=== PATIENT | male | born 1965 | race Caucasian/White ===

== ENCOUNTER 2022-03-24 00:49 | Emergency (ER) | payer MEDICARE, MEDICAID ==
[~2022-03-24] VITALS: Ht 172.7 cm; Wt 79.4 kg
[2022-03-24] MEDS ORDERED: diphenhydrAMINE 50 MG/1 ML VIAL ONE (01:15)
[2022-03-24] MEDS ORDERED: HALOPERIDOL LACTATE 5 MG/1 ML VIAL IM ONE (01:15)
[2022-03-24] MEDS ORDERED: LORAZEPAM 2 MG/1 ML VIAL IM ONE (01:15)
[2022-03-24] MEDS ORDERED: diphenhydrAMINE 50 MG/1 ML VIAL IM ONE (01:15)
[2022-03-24] MEDS ORDERED: HALOPERIDOL LACTATE 5 MG/1 ML VIAL ONE (01:16)
[2022-03-24] MEDS ORDERED: LORAZEPAM 2 MG/1 ML VIAL ONE (01:17)
--- NOTE | 2022-03-24 01:29 | NUR ---
Called [facility] and spoke to Poultry Husbandman Juan M, who states patient went AM from the facility and came back intoxicated. Juan M said they will fax any information they have regarding patient Hx but states they have limit infomation on patient due to patient being a new transfer from another facility.
[2022-03-24] MEDS ORDERED: THIAMINE HCL 100 MG TABLET PO ONE (01:45)
[2022-03-24 02:07] LABS: MEAN CORPUSCULAR VOLUME 91.9 fL (73.0-96.2); PLATELET COUNT (AUTO) 422 K/uL (152-348)
[2022-03-24 02:09] LABS: CREATININE 0.8 mg/dL (0.6-1.3); POTASSIUM 3.8 mmol/L (3.5-5.1)
[2022-03-24 02:15] LABS: BILIRUBIN,DIRECT 0.1 mg/dL (0.0-0.2); BILIRUBIN,TOTAL 0.2 mg/dL (0.2-1.0); TOTAL PROTEIN, SERUM 8.2 g/dL (6.4-8.2)
[2022-03-24 03:00] LABS: *AMPHETAMINE, URINE NEGATIVE (NEGATIVE); *CANNABINOID, URINE NEGATIVE (NEGATIVE); *COCCAINE, URINE NEGATIVE (NEGATIVE); *OPIATE, URINE NEGATIVE (NEGATIVE); *PHENCYCLIDINE SCREEN,URINE NEGATIVE (NEGATIVE)
[2022-03-24 03:07] LABS: BASOPHILS % (MANUAL) 0 % (0-2); EOSINOPHILS % (MANUAL) 2 % (0-8); LYMPHOCYTES % (MANUAL) 35 % (20-40); MONOCYTES % (MANUAL) 18 % (2-10); NEUTROPHILS % (MANUAL) 45 % (42-75)
[2022-03-24 03:09] LABS: IRON, SERUM 26 ug/dL (50-175)
[2022-03-24] MEDS ORDERED: FERR325T23 PO (06:06)
--- NOTE | 2022-03-24 07:10 | NUR ---
Report taken from INO Arias.
--- NOTE | 2022-03-24 07:14 | NUR ---
change of shift report to incoming RN
[2022-03-24] MEDS ORDERED: THIAMINE HCL 100 MG TABLET ONE (08:10)
[2022-03-24] MEDS ORDERED: LORAZEPAM 0.5 MG TABLET PO ONE ×4 (08:15→19:00)
[2022-03-24] MEDS ORDERED: LORAZEPAM 0.5 MG TABLET ONE ×2 (08:16→19:34)
--- NOTE | 2022-03-24 08:39 | NUR ---
Pt tried to eloped. Convinced to lay in bed and given breakfast. Pt took Thiamine and Ativan and resting quietly. Contacted the Assisted Facility where he came from ([facility] [address]) [facility] and spoke with Abelino (Sign Poster). [place] that the pt was transferred to [facility] for their detox program but was not accepted because of being COVID (+). Pt then transferred to [facility] [place]. Spoke with Mariangel/ admitting and says they don't want to accept the pt because "the patient trashed the place in [place] [address] and non-compliant to COVID isolation protocols. Pt was transferred to ER/ [place] due to ETOH intoxication. Hand the phone to Melva/ social psychologist to coordinate with a social psychologist named Jeana. Spoke with Nick (computer systems administrator of [facility]) and says they cannot accept the patient because he needs higher level of care. That of pt being COVID (+) and they don't have isolation, and "pt has been engaging other residents without wearing mask. He's been having agitated behavior screaming at staff and damaging properties". Endorsed information gathered to Melva/FELIX and will see if pt can take a placement at [facility] . Will re-test pt for COVID.
--- NOTE | 2022-03-24 09:42 | NUR ---
Sheldon moran. Placed a call at Melva's cellphone/ social media job titles.
--- NOTE | 2022-03-24 10:01 | NUR ---
Pt came back and now resting in Bed 5A.
--- NOTE | 2022-03-24 10:08 | NUR ---
Pt is still positive for COVID. Melva will contact [facility] if they could still accept the patient.
--- NOTE | 2022-03-24 10:59 | NUR ---
Pt is saturating 89-91% on RA. No s/sx of resp distress. Pt readily saturates 99% on Non-rebreather mask at 15LPM in 5 mins. Maintained now at 92% via nasal cannula at 1LPM.
--- NOTE | 2022-03-24 11:07 | NUR ---
Printed Summary Report and faxed to to Yanira ( ) and see if she could find a placement for the patient. Yary/ district court administrator of [facility] made the referral and now decided that [facility] can't take the pt. Facilities being contacted that accepts COVID (+) patients will be: 1. [facility] 2. [facility]. Melva/ FELIX schmidt.
--- NOTE | 2022-03-24 12:16 | NUR ---
Contacted Yanira/ Intake and was able to verify receipt of pt's Facesheet and insurance info, and summary report. Will call back for confirmation of placement in 30 mins.
--- NOTE | 2022-03-24 13:21 | NUR ---
Pt denied by Yanira's facilities. Contacted private independent living facility and can't accept a (+) COVID pt. Pt says he has a one way plane fare to [place] to be united with his Kal. Asked FELIX Frye to make it happen.
--- NOTE | 2022-03-24 13:58 | NUR ---
Spoke with Economic Developer Kari and says [facility] a bed for COVID (+) kpatients. FELIX rFye faxed the facesheet and Summary report.
--- NOTE | 2022-03-24 14:05 | NUR ---
Social work consult was requested for a patient in the emergency room for substance abuse resources. Patient is 57-year-old male. Patient is COVID positive. Patient appears disoriented and intoxicated. Patient appears lethargic. Patient presents with anxious mood and congruent affect. Patient presents with poor judgement and insight. Patient states he does not have a primary field contact technician and does not have any family or social support. Per nurse, Rony Armenta, the patient was living at [facility]. Per face sheet patient is currently unemployed. SW unable to ascertain history of substance abuse because patient refused to answer assessment questions. SW offered the patient substance abuse resources and the patient refused. Patient appears unmotivated for treatment. Resources were placed in the chart. SW unable to ascertain history of psychiatric diagnosis. Patient states that he is open to going to [facility]. This outreach and education social worker faxed clinicals to [facility] ([phone]) and spoke with Jorge ([phone]).
[2022-03-24] MEDS ORDERED: LORAZEPAM 1 MG TABLET ONE ×2 (14:18→16:04)
--- NOTE | 2022-03-24 14:39 | NUR ---
Per Melva. [facility] in [place] will call soon for bed placement and report. Jorge is the intake. .
--- NOTE | 2022-03-24 15:50 | NUR ---
FELIX ordered an ambulance from [facility] ([phone]) and the ambulance service stated that the estimated time of arrival will be 2 hours. SW updated the Doctor and Nurse in the emergency room. SW called and updated the [facility] nurse ([phone]) of the estimated time of arrival.
--- NOTE | 2022-03-24 19:10 | NUR ---
Pt remained alert, oriented, cooperative. Hemodynamically stable. Oxygen saturation maintained on 91 on RA and at 92-93% on 1LPM of O2.
== END 2022-03-24 19:39 ==
LOC: ER 00:55
DX: F29 Unspecified psychosis not due to a substance or known physiological condition (principal); F10.129 Alcohol abuse with intoxication, unspecified; Y90.7 Blood alcohol level of 200-239 mg/100 ml; U07.1 COVID-19; R60.0 Localized edema; R74.01 Elevation of levels of liver transaminase levels; D50.9 Iron deficiency anemia, unspecified; I44.0 Atrioventricular block, first degree; K70.9 Alcoholic liver disease, unspecified
CPT/HCPCS: 80076; 80048; 83550; 83735; 85007; 85025; 87426; 36415; 93005; 99284; 96372 ×2; 80320; 80307; J1200; J1630; J2060; 70030-TC; A4663; G0480